=== PATIENT | female | born 1965 | race Hispanic/Latino ===

== ENCOUNTER 2017-01-23 21:00 | Emergency (ER) | payer OTHER ==
[2017-01-23] MEDS ORDERED: TYLENOL ONE (21:17)
[2017-01-23] MEDS ORDERED: TYLENOL PO ONE (21:31)
[2017-01-24] MEDS ORDERED: FLEXERIL PO ONE (01:54)
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
[2017-01-24 02:44] VITALS: BP 126/88
== END 2017-01-24 02:45 | disposition home or self-care (01) ==
LOC: ED 21:00
DX: S39.012A Strain of muscle, fascia and tendon of lower back, initial encounter (principal); V49.49XA Driver injured in collision with other motor vehicles in traffic accident, initial encounter; Y93.9 Activity, unspecified; Y92.9 Unspecified place or not applicable; Y99.9 Unspecified external cause status
CPT/HCPCS: 99282